=== PATIENT | male | born 1965 | race Caucasian/White ===

== ENCOUNTER 2017-04-24 21:46 | Emergency (ER) | payer OTHER ==
[~2017-04-24] VITALS: Ht 182.9 cm; Wt 64.5 kg
[~2017-04-24 21:46] MED LIST: ACYC400T2 PO; RANI-5 PO
[2017-04-24 21:56] VITALS: BP 177/136; PULSE 89; RESP 16; O2SAT 98
[2017-04-24 22:39] LABS: EOSINOPHILS % (AUTO) 0.5 % (0-5)
[2017-04-24 22:58] LABS: BASOPHILS % (AUTO) 0.4 % (0-3); MONOCYTES % (AUTO) 10.5 % (4-12); Mean Corpuscular Hemoglobin 31.1 pg (27.0-35.0); Mean Corpuscular Volume 82.5 fL (81-100); NEUTROPHILS % (AUTO) 69.2 % (40-74); Platelet Count 257 bil/L (150-400)
[2017-04-24 23:27] LABS: TROPONIN T 0.01 ug/L (0.0-0.011)
[2017-04-25 00:03] VITALS: BP 175/115; PULSE 83; RESP 20; O2SAT 97
--- NOTE | 2017-04-25 00:08 | ED.REPORT ---
HPI-General Illness Date of Service Apr 25, 2017 ED Provider: Damian Anne MD Patient is a 51 year old male who presents to the ED complaining of insomnia. Associated symptoms include anxiety and increased sleep. He denies suicidal ideation or homicidal ideation. He is also concerned about his high blood pressure, which he has tried taking 30mg of Propanonol for. The patient reports that he's about to have a "nervous breakdown" due to his marriage ending three weeks ago. Patient states that he has tried using Trazadone and was started on Ambian a week ago but has still been unable to get more than a few hours of sleep. The patient reports that he has had Valium once before, which helped he sleep. He has been been seeing his counselor on a regular basis but with the increased stress, states he "just needs some sleep". The patient reports having a "nervous breakdown" and being hospitalized 25 years ago. Patient denies drug use and reports having about 1 beer a night. The patient used to binge drink but has been seeking treatment and hasn't binge drank in the last month. Nursing Notes Stated Complaint: ANXIETY,HIGH BLOOD PRESSURE Chief Complaint: General Complaint Nursing Notes Reviewed: Yes Allergies: Coded Allergies: amoxicillin (Verified Allergy, Unknown, stomach upset, 04/24/17) Scheduled Acyclovir (Acyclovir) 400 Mg Tablet 400 MG PO BID Scheduled PRN Diazepam (Diazepam) 5 Mg Tablet 5-10 MG PO HS PRN PRN Insomnia Miscellaneous Medications Ranitidine HCl (Acid Control) 150 Mg Tablet 150 MG PO General Time Seen by MD: 00:07 Chief Complaint Other (insomnia) Hx Obtained From: Patient Arrived By: Walk-in Sudden in Onset?: Yes Onset Occurred: More than a week ago... Symptom Duration: Since onset Similar Sx Previous: No Past Medical History Smoking History Current Some Day Smoker Social History Alcohol Use: 1-3 per week Drug Use: Denies drug use Other Social History: Good social support Ambulatory Status Independent Review of Systems Full Review of Systems Psychiatric: Reports: Anxiety, Insomnia, Stress, Denies: Homicidal ideation, Suicidal ideation Complete sys rev & neg: except as marked. Physical Exam Vital Signs Vital Signs Date Time Temp Pulse Resp B/P Pulse Ox O2 Delivery O2 Flow Rate FiO2 04/25/17 00:46 90 18 171/100 95 Room Air 04/25/17 00:03 83 20 175/115 97 Room Air 04/24/17 21:56 37.0 89 16 177/136 98 Room Air Initial VS: Reviewed General/Constitutional: Awake, Alert Behavior: Positive: Tearful Head / Eyes: Atraumatic, Normocephalic Respiratory / Chest: Atraumatic, Breath sounds NL, Breath sounds = bilat, No respiratory distress Cardiovascular: Heart rate NL, Regular rhythm, Heart sounds NL, No gallop, No murmurs, No rubs Upper Extremities Upper Extremity / MS: Atraumatic, Full range of motion Skin: Atraumatic, Color NL, No rash, Warm, Dry Psychiatric: Not suicidal, Not homicidal, No hallucinations, Judgment/insight NL engages well emotional Interpretation & Diagnostics Lab Results Interpretation Result Diagram: 04/24/17223404/24/172234 Test 04/24/17 22:35 04/24/17 22:36 White Blood Count 10.4th/mm3 (3.8-10.1) Red Blood Count 5.76mil/mm3 (4.40-5.80) Hemoglobin 17.9g/dL (13.8-17.2) Hematocrit 47.5% (41.0-50.0) Mean Corpuscular Volume 82.5fL (81-100) Mean Corpuscular Hemoglobin 31.1pg (27.0-35.0) Mean Corpuscular Hemoglobin Concent 37.7% (32.0-37.0) Red Cell Distribution Width 12.4% (12.3-15.4) Platelet Count 257bil/L (150-400) Neutrophils (%) (Auto) 69.2% (40-74) Lymphocytes (%) (Auto) 19.2% (14-46) Monocytes (%) (Auto) 10.5% (4-12) Eosinophils (%) (Auto) 0.5% (0-5) Basophils (%) (Auto) 0.4% (0-3) Sodium Level 138mEq/L (134-144) Potassium Level 4.1mEq/L (3.5-5.2) Chloride Level 99mEq/L (97-108) Carbon Dioxide Level 23mmol/L (18-29) Blood Urea Nitrogen 23mg/dL (6-24) Creatinine 0.85mg/dL (0.76-1.27) Estimat Glomerular Filtration Rate 101mL/min (>59) Glucose Level 143mg/dL (60-99) Calcium Level 9.5mg/dL (8.5-10.1) Total Bilirubin 1.6mg/dL (0.0-1.2) Aspartate Amino Transf (AST/SGOT) 17U/L (0-50) Alanine Aminotransferase (ALT/SGPT) 19U/L (0-44) Alkaline Phosphatase 71U/L (25-150) Troponin T 0.010ug/L (0.0-0.011) Total Protein 7.3g/dL (6.4-8.4) Albumin 4.6g/dL (3.4-5.0) Hold Carroll Top Tube Received (Received) ECG Interpretation ECG Interpretation: consider LVH Time: 22:15 Interpreted by: ED physician Normal ECG Interpretation: Normal rate, Normal sinus rhythm Re-Eval/Medical Decision Med Decision/Clinical Course A 51-year-old man with situational stress leading to significant insomnia. Previous "nervous breakdown" resulting in psychiatric admission during prior divorce is evidence that this patient decompensated significantly when he has difficulty sleeping. Has tried trazodone and Ambien without success, reports a previous good experience with Valium for insomnia. I advised him of the significant downsides associated with using Valium for insomnia and anxiety in particular the fact that his sedating and addictive. Nonetheless it is also quite apparent he is presently suffering terribly from his insomnia and situational stress. He was given 10 mg of diazepam here in the emergency department and discharged with his mother as a pick up driver, they are traveling in short distance to her home and hopefully you will be sleepy following that. He does have some hypertension today for further no signs of end organ damage and I believe hypertension as a secondary issue. This may be followed up with primary care concurrently with further advice regarding medications and other therapeutic approaches. Time of Eval: 00:22 Re-Evaluation/Progress Note: Discussed plan for Valium and discharge. Patient understands and agrees to plan. All questions were addressed. Counseled Regarding: Diagnosis, Lab results, Need for follow-up, When/why to return to ED Discharge & Departure Primary Impression: Insomnia Insomnia type: unspecified Qualified Code: G47.00 - Insomnia, unspecified Disposition: Home Discharge Condition All VS Reviewed: Yes Condition: Stable Additional Instructions: ED evaluation included interview, exam, labs and ECG. We will try 10mg of valium tonight in the hopes it will help you sleep. If you are still awake an hour after this you can also take 2 trazodone. BP is high tonight, almost certainly due to insomnia. Continue previous home medications and follow up with primary care soon. return for chest pain, continued insomnia or suicidal ideation. Referrals: Keshawn Hammonds MD (PCP) Trevonibmanolo Attestation Portions of this note were transcribed by Evelyne Oscar. I, Dr. Anne personally performed the history, physical exam and medical decision-making; I reviewed and confirmed the accuracy of the information in the transcribed note. Signed by: Derrikc Murillo, 04/24/17 copies to: Keshawn Hammonds MD, Donald L MD Apr 25, 2017 00:08 Karol Oscar Apr 25, 2017 00:18
[2017-04-25] MEDS ORDERED: DIAZ5TAB3 PO (00:31)
[2017-04-25 00:46] VITALS: BP 171/100; PULSE 90; RESP 18; O2SAT 95
[2017-04-25] MEDS ORDERED: DIAZ10TA3 PO (14:21)
[2017-04-25] MEDS ORDERED: LORA-303 PO (16:43)
== END 2017-04-25 00:42 | disposition home or self-care (01) ==
LOC: SED 21:46
DX: G47.00 Insomnia, unspecified (principal); F17.200 Nicotine dependence, unspecified, uncomplicated; Z88.0 Allergy status to penicillin

== ENCOUNTER 2017-04-25 05:35 | Emergency (ER) | payer OTHER ==
[~2017-04-25] VITALS: Ht 182.9 cm; Wt 64.5 kg
[~2017-04-25 05:35] MED LIST changes: +DIAZ5TAB3 PO
[2017-04-25 06:00] VITALS: BP 148/100; PULSE 102; RESP 18; O2SAT 97
--- NOTE | 2017-04-25 06:22 | ED.REPORT ---
HPI-General Illness Date of Service Apr 25, 2017 ED Provider: Bunny Dillon MD The pt is a 51 y/o male who presents to the ED complaining of insomnia. The pt came in yesterday evening with the same symptoms and was prescribed Valium, 10mg. The pt admits he was only able to sleep for 2 hours with Valium. He also took trazadone but purposefully vomited the medicine out complaining that "it didn't feel right." Upon interview, pt admits to being under increased stress as he is going through a divorce. He states, "I am wearing out and stress is getting to me. I' m not sleeping well and my BP is really high... Anything that is stressful, I just can't take it anymore. I just need to sleep." He also complains of a weight loss of 8 lbs over the past few weeks. The pt takes propranolol as needed "for public speaking" prescribed by his PCP ( Dr. Nasra Liao). He has been taking this daily. He has tried taking zolpidem, Ambien, alprazolam, and trazodone all with little to mild relief. Pt reports his longest sleep in the last 3 weeks was for 6 hours after he combines trazadone and alprazolam. 3 days ago his PCP had him mix Ambien and zolpidem without relief. Pt has seen his PCP 2-3 times in the past 2 weeks with the same complaints. He does have a regular counselor. Nursing Notes Stated Complaint: INSOMNIA/POSS HYPERTENSION Chief Complaint: General Complaint Nursing Notes Reviewed: Yes ([employer], [employer] not reconciled) Allergies: Coded Allergies: amoxicillin (Verified Allergy, Unknown, stomach upset, 04/25/17) Scheduled Acyclovir (Acyclovir) 400 Mg Tablet 400 MG PO BID Scheduled PRN Diazepam (Diazepam) 5 Mg Tablet 5-10 MG PO HS PRN PRN Insomnia Diazepam (Diazepam) 10 Mg Tablet 10 MG PO BID PRN PRN For Anxiety Miscellaneous Medications Ranitidine HCl (Acid Control) 150 Mg Tablet 150 MG PO General Time Seen by : 06:04 Chief Complaint Other (Insomnia ) Hx Obtained From: Patient, Other family... Arrived By: Walk-in Sudden in Onset?: No Onset Occurred: More than a week ago... (3 weeks) Symptom Duration: Since onset Severity: Current: No pain currently Severity: Maximum: No pain Recent Healthcare: No recent hospitalization, Recent doctor visit Similar Sx Previous: Yes Past Medical History Past Medical History Notes: Seen a few hours ago in ED for insomnia secondary to acute stress reaction Past Medical History Arthritis Past Surgical History broken nose testicular Smoking History Current Some Day Smoker Social History Going through seperation from 2nd Alcohol Use: 1-3 per week Drug Use: Denies drug use Other Social History: Good social support Ambulatory Status Independent Review of Systems + elevated BP Full Review of Systems Constitutional: Denies: Fever Respiratory: Denies: Non-productive cough, Shortness of breath GI: Denies: Abdominal pain Endocrine: Reports: Weight loss Psychiatric: Reports: Anxiety, Insomnia, Stress, Denies: Suicidal ideation Complete sys rev & neg: except as marked. Physical Exam Vital Signs Vital Signs Date Time Temp Pulse Resp B/P Pulse Ox O2 Delivery O2 Flow Rate FiO2 04/25/17 13:43 103 20 144/99 97 Room Air 04/25/17 06:00 36.7 102 18 148/100 97 Room Air Initial VS: Reviewed, Vital signs abnormal General/Constitutional: Awake, Alert Behavior: Positive: Anxious Distraught Intermittently tearful Head / Eyes: Atraumatic, Normocephalic ENT: Atraumatic, Airway patent Neck: Atraumatic, Supple Respiratory / Chest: Atraumatic, Breath sounds NL, Breath sounds = bilat, No respiratory distress Cardiovascular: Heart rate NL, Regular rhythm, Heart sounds NL Abdomen: Atraumatic, Soft, Non-tender Back: Atraumatic Upper Extremities Upper Extremity / MS: Atraumatic Lower Extremity / Pelvis / MS: Atraumatic Skin: Atraumatic, Color NL, No rash, Warm, Dry Neurologic: Oriented X3, Speech NL, No motor deficits, No sensory deficits, CN II - XII intact Psychiatric: Not suicidal, Judgment/insight NL Abnormal Mood/Affect: Positive: Anxious Interpretation & Diagnostics Lab Results Interpretation Result Diagram: 04/25/17 0705 04/25/17 0705 Test 04/25/17 07:05 04/25/17 08:55 White Blood Count 8.8th/mm3 (3.8-10.1) Red Blood Count 5.50mil/mm3 (4.40-5.80) Hemoglobin 16.9g/dL (13.8-17.2) Hematocrit 45.9% (41.0-50.0) Mean Corpuscular Volume 83.5fL (81-100) Mean Corpuscular Hemoglobin 30.7pg (27.0-35.0) Mean Corpuscular Hemoglobin Concent 36.8% (32.0-37.0) Red Cell Distribution Width 12.4% (12.3-15.4) Platelet Count 224bil/L (150-400) Neutrophils (%) (Auto) 64.9% (40-74) Lymphocytes (%) (Auto) 20.6% (14-46) Monocytes (%) (Auto) 13.0% (4-12) Eosinophils (%) (Auto) 1.1% (0-5) Basophils (%) (Auto) 0.2% (0-3) Sodium Level 138mEq/L (134-144) Potassium Level 4.0mEq/L (3.5-5.2) Chloride Level 103mEq/L (97-108) Carbon Dioxide Level 23mmol/L (18-29) Blood Urea Nitrogen 20mg/dL (6-24) Creatinine 0.75mg/dL (0.76-1.27) Estimat Glomerular Filtration Rate 116mL/min (>59) Glucose Level 110mg/dL (60-99) Calcium Level 9.5mg/dL (8.5-10.1) Total Bilirubin 1.2mg/dL (0.0-1.2) Aspartate Amino Transf (AST/SGOT) 15U/L (0-50) Alanine Aminotransferase (ALT/SGPT) 18U/L (0-44) Alkaline Phosphatase 74U/L (25-150) Total Protein 7.2g/dL (6.4-8.4) Albumin 4.3g/dL (3.4-5.0) Hold Carroll Top Tube Received (Received) Alcohols < 10mg/dL (0-10) Hold Urine Received (Received) Lab Results Interpretation: CBC normal + CMP normal I'll call 0 Tox screen negative except for benzos, prescribed Re-Eval/Medical Decision Med Decision/Clinical Course This is a 51-year-old male returns complaining of ongoing anxiety satiety, and severe insomnia. Patient's going through a divorce, reports he has not been able to sleep and has been seen by his PCP several times his tried trazodone, Ambien, can't emerge department due to persistent symptoms received a dose of diazepam last night, but slept only 2 hours. Returns ongoing just feels like he is starting to have a nervous breakdown, he has 1 psychiatriac hospitalization or similar services years ago with acute stress reaction and insomnia and is worried he is getting to that point, he requests hospitalization. He denies juan a suicidality, hallucination. Denies history of polydrug abuse. The patient is anxious, distraught, and depressed. However he has intact insight and preserved judgment. He demonstrates no colon signs of intoxication or withdrawal. Patient received additional diazepam 10 mg, and 50 of diphenhydramine and slept for several hours. When he awoke and still feels distraught, so arrange for him to meet with [facility] [employer] [facility] as the patient is now requesting voluntary admission. Screening labs, tox screen, alcohol were negative except for the benzos that were prescribed last night. Source of Hx: Old records Time of Eval: 10:51 Patient Status: No relief Re-Evaluation/Progress Note: Pt rechecked. He has woken up since taking additional 10mg Valium. Pt is still concerned of his current situation of not being able to stay asleep for a long period of time. Pt is currently waiting for [facility] to arrive at 1100. Differential Diagnosis: Negative: Abdominal pain, Acute coronary syndrome, Allergies, Diabetes mellitus, Fracture, Neutropenia, Pneumonia, Seizure disorder Counseled Regarding: Diagnosis, Lab results Discharge & Departure Shift Change Sign-Out Patient Care Transferred: Yes Discussed Complaint(s): Yes Laboratory Evaluation: Ordered, not yet done Transfer of care to Dr. Wagoner at 1500 Primary Impression: Insomnia Insomnia type: unspecified Qualified Code: G47.00 - Insomnia, unspecified Additional Impression: Acute reaction to stress Discharge Condition All VS Reviewed: Yes Condition: Stable Referrals: Keshawn Hammonds MD (PCP) Care Transferred to: Transfer of care to [facility] Transferred at: 15:00 Scribe Attestation Portion of this note were transcribed by Arnaldo Alvares and Jeri Michael. I , Dr. Bunny Dillon personally performed the history, physical exam and medical decision-making; I reviewed and confirmed the accuracy of the information in the transcribed note. Signed by: Arnlado Alvares and Derrick Rosas, 04/25/17. copies to: Keshawn Hammonds MD, Matthew F MD Apr 25, 2017 06:21 Arnaldo Alvares Apr 25, 2017 06:40 JERI MICHAEL Apr 25, 2017 09:10
[2017-04-25] MEDS ORDERED: diphenhydrAMINE 50 mg Capsule PO ONE (06:50)
[2017-04-25] MEDS ORDERED: diphenhydrAMINE 25 mg Capsule PO ONE (07:10)
[2017-04-25 07:18] LABS: BASOPHILS % (AUTO) 0.2 % (0-3); EOSINOPHILS % (AUTO) 1.1 % (0-5); Mean Corpuscular Hemoglobin 30.7 pg (27.0-35.0); Mean Corpuscular Volume 83.5 fL (81-100); NEUTROPHILS % (AUTO) 64.9 % (40-74); Platelet Count 224 bil/L (150-400)
[2017-04-25 13:43] VITALS: BP 144/99; PULSE 103; RESP 20; O2SAT 97
[2017-04-25] MEDS ORDERED: DIAZ10TA3 PO (14:21)
[2017-04-25] MEDS ORDERED: LORA-303 PO (16:43)
[2017-04-25 16:57] VITALS: BP 135/90; PULSE 101; RESP 20; O2SAT 96
== END 2017-04-25 16:58 ==
LOC: SED 05:35
DX: G47.00 Insomnia, unspecified (principal); F43.0 Acute stress reaction; F17.200 Nicotine dependence, unspecified, uncomplicated; Z88.0 Allergy status to penicillin
CPT/HCPCS: 36415; 80053; 81002; 85025; 99284; G0480